=== PATIENT | male | born 1995 | race African-American/Black ===

== ENCOUNTER → 2016-11-12 | Outpatient (CLI) | payer BC ==
--- NOTE | 2016-11-12 11:55 | Diagnostic Imaging Report ---
PROCEDURE: MRI left joint lower extremity without contrast. TECHNIQUE: Multiplanar, multisequence non contrast-enhanced MRI of the left lower extremity was accomplished. INDICATION: Injury. Knee pain. COMPARISON: There are no previous studies available for comparison. FINDINGS: On the proton dense sagittal series, there is some irregular signal involving the posterior most portion of the posterior horn of the lateral meniscus. This finding is suspicious for a small tear. The medial meniscus is intact. The anterior and posterior cruciate ligaments, the quadriceps and infrapatellar tendons, the collateral ligaments, the biceps femoris tendon and iliotibial band show no sign of an acute abnormality. There is no sign of an injury to either the medial or lateral retinaculum either. On the parasagittal images, there is some irregularity of the attachment of the infrapatellar tendon to the inferior pole of the patella. There is a small calcific density in this area and these findings may be a sequela of prior trauma to the inferior pole of the patella and the attachment of the infrapatellar tendon. There is no abnormal signal arising from the osseous structures to suggest bone edema or fracture. The knee joint is well maintained. There is a small joint effusion present but there is no evidence for a Saucedo's cyst. IMPRESSION: 1. The findings do suggest a small tear along the posterior horn of the lateral meniscus. The medial meniscus is intact. 2. The irregular appearance of the attachment of the infrapatellar tendon to the inferior pole of the patella and the small calcification in this area suggests a prior a avulsion injury. If previous exams are available, they would be helpful for comparison. 3. The other major ligaments and tendons are intact. 4. There is a small joint effusion present. Dictated by: Dictated on workstation # [id number]
== END ==
LOC: RAD 10:50
PROVIDERS: ATTEND Orthopaedic Surgery
DX: S83.242A Other tear of medial meniscus, current injury, left knee, initial encounter (principal); M22.42 Chondromalacia patellae, left knee; X58.XXXA Exposure to other specified factors, initial encounter; Y99.8 Other external cause status
CPT/HCPCS: 73721

== ENCOUNTER → 2020-06-30 | Outpatient (CLI) | payer OTHER ==
--- NOTE | 2020-06-30 10:55 | Diagnostic Imaging Report ---
PROCEDURE: MRI left joint lower extremity without contrast. TECHNIQUE: Multiplanar, multisequence non contrast-enhanced MRI of the left lower extremity was accomplished. INDICATION: Knee pain. The previous MRI left knee exam of 11/12/2016 suggest a small tear of the posterior horn of the lateral meniscus. Reportedly the patient has had 2 prior knee surgeries. On this exam, the small tear of the posterior horn of the lateral meniscus is again identified and does not appear to have changed significantly (page 8 of 29 series 6) and there is still no evidence for tear of the medial meniscus. The anterior and posterior cruciate ligaments are intact. The prior exam did note an irregular appearance of the attachment of the infrapatellar tendon to the inferior pole of the patella that finding is again evident. The infrapatellar tendon itself does seem somewhat larger and thicker and it appears that the infrapatellar tendon has been repaired in the interval since the prior exam. Surgical residue is also seen about the patella itself. On this study, there is no abnormal signal arising the infrapatellar tendon to suggest an acute injury. The quadriceps tendon where visualized is unremarkable. The medial collateral ligament, the biceps femoris tendon, the lateral collateral ligament, the iliotibial band and the medial and lateral retinaculum show no sign of an acute abnormality. 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 This is perhaps slightly worse than noted on the prior exam. The lateral femoral condyle is generally unremarkable. The patellofemoral space is fairly well-maintained. There is no abnormal signal arising from the osseous structures to indicate bone edema or fracture. There is a small joint effusion present. There is no sign of a Saucedo's cyst. IMPRESSION: 1. The small tear of the posterior horn of lateral meniscus seen previously is again evident and no different. There is still no evidence for an injury to the medial meniscus. 2. There has been interval surgical repair of the infrapatellar tendon. There is no acute abnormality of the infrapatellar tendon on this exam. The other major ligaments and tendons are also unremarkable for an acute abnormality. 3. There is no sign of an acute bony abnormality. There is moderate degenerative disease of the articular surface of the medial femoral condyle, however. Dictated by: Dictated on workstation # [id number]
== END ==
LOC: RAD 08:00
PROVIDERS: ATTEND Orthopaedic Surgery
DX: M23.204 Derangement of unspecified medial meniscus due to old tear or injury, left knee (principal); M17.12 Unilateral primary osteoarthritis, left knee; M23.252 Derangement of posterior horn of lateral meniscus due to old tear or injury, left knee; Z98.890 Other specified postprocedural states
CPT/HCPCS: 73721

== ENCOUNTER 2021-12-30 08:33 | Outpatient (RCR) | payer OTHER | END 2022-01-11 | disposition home or self-care (01) | PROVIDERS: ATTEND Family Medicine Sports Medicine | DX: S76.391D Other specified injury of muscle, fascia and tendon of the posterior muscle group at thigh level, right thigh, subsequent encounter (principal); S76.392 Other specified injury of muscle, fascia and tendon of the posterior muscle group at thigh level, left thigh; X58.XXXD Exposure to other specified factors, subsequent encounter ==